=== PATIENT | female | born 1985 | race Caucasian/White ===

== ENCOUNTER 2025-02-16 17:17 | Emergency (ER) | payer BC, SELFPAY ==
[2025-02-16 17:18] VITALS: BP 116/82; PULSE 79; RESP 18; TEMP 36.4; O2SAT 99
[2025-02-16 17:21] VITALS: BMI 30.4
[2025-02-16] MEDS: Lidocaine 1% (20 ml mdv) 20 ML Vial 10 ML INFILT (18:29)
--- NOTE | 2025-02-16 18:57 | EDS_ITS ---
HPI History of Present Illness Chief Complaint: Laceration Narrative Narrative: Patient is a 31-year-old female with no known significant past medical history who presents to the emergency department with a chief complaint of left thumb laceration. Patient states that she was using a knife in preparation to prepare one of the fishing poles when this slipped cut her thumb. She states that in the triage note afterwards she got pale and shaky and almost passed out she states that this was secondary to the blood and she states that she feels fine here in the emergency department. PFSH PFS Allergy/AdvReac Type Severity Reaction Status Date / Time No Known Allergies Allergy Verified 02/16/25 18:00 Social History Smoking Status: Former smoker ROS ROS ED ROS Narrative Neurological: Denies numbness, weakness, tingling Skin: Complains of a left thumb laceration as noted above EXAM Physical Exam Narrative Exam Narrative: General: Patient lying in bed rest comfortably did not appear to be acute distress Head: Atraumatic, normocephalic Cardiovascular: Regular in rhythm Extremities: Radial pulses +2/4 in the bilateral extremities, +5/5 strength noted in the bilateral upper extremities, patient is able to fully flex and extend all her fingers and specifically in her left thumb without any difficulty Neurological: Sensation gross intact in the median, ulnar and radial nerve distributions bilaterally Skin: Warm, dry, patient has a approximately 2 and half centimeter laceration over the volar aspect of her left proximal thumb Const Vital Signs: 02/16/25 17:18 Temperature 97.5 F L Temperature Source Temporal Pulse Rate 79 Respiratory Rate 18 Blood Pressure 116/82 H Blood Pressure Mean 93 Pulse Ox 99 Oxygen Delivery Method Room Air MDM MDM MDM Narrative Medical decision making narrative: Patient is a 39-year-old female who presented to the emergency department the chief complaint of thumb laceration. On the differential diagnosis includes but not limited to thumb laceration, retained foreign body. Once workup is obtained reviewed she will be reevaluated. Patient is refusing x-ray I discussed with her there is a chance that there could be a foreign body in there that can increase her risk of infection and she states that she does not want an x-ray and is understanding of this. She states that her tetanus shot is up-to-date within the last 3 years. Patient had a laceration repaired she was advised to have these removed in approximately 7 days and watch out for signs of infection such as surrounding redness purulent drainage. She was advised if this is to occur she needs to f ollow-up with her doctor and be placed on antibiotics versus come back to the emergency department for further evaluation management. She is agreeable this plan all question concerns answered she was discharged home in stable condition. Procedure note Procedure name: Laceration repair Indication: Reduce risk of infection Location: Left volar proximal thumb 2 and half centimeter simple laceration Preprocedure diagnosis: Laceration Postprocedure diagnosis: Repaired laceration Informed consent was obtained prior to procedure started. Procedure: The appropriate timeout was taken. The area was prepped and draped in usual sterile fashion. Local anesthesia was achieved using 2 cc of lidocaine 1% without epinephrine. Wound was copiously irrigated. 4 4-0 Ethilon interrupted sutures were placed. Estimated blood loss was less than 0.5 mL. Dressing was applied to the area and anticipatory guidance, as well as standard postprocedure care was explained. Return precautions are given. Patient tolerated procedure well without any complications. Follow-up visit for suture removal and evaluation of laceration. Discharge Plan Triage Chief Complaint: Laceration ED Provider: Salvador Peters Dx/Rx/DC Orders Clinical Impression: Laceration of thumb Activity Restrictions/Additional Instructions: Have your sutures removed in approximately 7 days. Watch out for signs of infection such as surrounding redness purulent drainage coming from the wound. If this does occur you are supposed to follow-up with your primary care physician or return to the emergency department. Do not soak your sutures do not scrub at them you can let warm soapy water run over these. Print Language: Danish Disposition Disposition: Home, Self Care
== END 2025-02-16 19:06 | disposition home or self-care (01) ==
PROVIDERS: Emergency Provider Emergency Medicine; Visit Provider Emergency Medicine
DX: S61.012A Laceration without foreign body of left thumb without damage to nail, initial encounter (principal); W26.0XXA Contact with knife, initial encounter; Z87.891 Personal history of nicotine dependence
CPT/HCPCS: 12001; 99283